=== PATIENT | female | born 1960 | race Caucasian/White ===

== ENCOUNTER → 2018-05-26 | Outpatient (CLI) | payer BC ==
[2018-05-30 12:08] LABS: HPV 16 Negative (Negative); HPV 18 Negative (Negative); HPV OTHER HR TYPES Negative (Negative)
== END | disposition home or self-care (01) ==
LOC: LAB SHORT 16:03 → LAB 16:03
PROVIDERS: Obstetrics & Gynecology
DX: R87.610 Atypical squamous cells of undetermined significance on cytologic smear of cervix (ASC-US) (principal); R87.810 Cervical high risk human papillomavirus (HPV) DNA test positive
CPT/HCPCS: 87624; 88142

== ENCOUNTER 2019-04-27 07:39 | Day surgery (SDC) | payer BC ==
[~2019-04-27] VITALS: Ht 177.8 cm; Wt 93.4 kg
[~2019-04-27 07:39] MED LIST: ALBU90OI INH
== END 2019-04-27 10:07 | disposition home or self-care (01) ==
LOC: ORSCSDS 07:39
PROVIDERS: Internal Medicine Gastroenterology
PROC: 0DBL8ZX Excision of Transverse Colon, Via Natural or Artificial Opening Endoscopic, Diagnostic (ICD-10-PCS; principal; 2019-04-27 09:00)
PROC: 0DBN8ZX Excision of Sigmoid Colon, Via Natural or Artificial Opening Endoscopic, Diagnostic (ICD-10-PCS; principal; 2019-04-27 09:00)
DX: Z12.11 Encounter for screening for malignant neoplasm of colon (principal); Z86.010 Personal history of colon polyps; K63.5 Polyp of colon; K64.8 Other hemorrhoids; E78.5 Hyperlipidemia, unspecified; Z79.899 Other long term (current) drug therapy
CPT/HCPCS: 88305; J2405; J2704; J7120

== ENCOUNTER → 2019-05-11 | Outpatient (CLI) | payer BC ==
[~2019-05-11] MED LIST changes: +HYDR1TAB94 PO; +IBUP400 PO; +Percocet 5-3251 EACH PO
== END | disposition home or self-care (01) ==
LOC: LAB SHORT 12:25 → PLD 12:25
DX: R93.89 Abnormal findings on diagnostic imaging of other specified body structures (principal)
CPT/HCPCS: 88305

== ENCOUNTER 2019-06-15 05:53 | Day surgery (SDC) | payer BC ==
[~2019-06-15] VITALS: Ht 177.8 cm; Wt 92.9 kg
[~2019-06-15 05:53] MED LIST changes: -HYDR1TAB94 PO; -IBUP400 PO; -Percocet 5-3251 EACH PO
--- NOTE | 2019-06-15 06:47 | NUR ---
Ambulatory in Day Surgery History, Chart, Medications and Allergies reviewed before start of procedure. Lungs clear T/O to Auscultation. Patient confirms NPO status and agrees with scheduled surgery. Pre-Op teaching done. Pt verbalizes understanding.
[2019-06-15 14:12] LABS: BASOPHILS ABSOLUTE AUTO 0.02 K/mm3 (0.00-0.23); BASOPHILS PERCENT AUTO 0 % (0-2); EOSINOPHILS ABSOLUTE AUTO 0.02 K/mm3 (0.00-0.68); EOSINOPHILS PERCENT AUTO 0 % (0-6); Hematocrit 37.4 % (33.0-51.0); Hemoglobin 12.2 g/dL (11.5-16.0); IMMATURE GRAN ABSOLUTE AUTO 0.06 K/mm3 (0.00-0.10); IMMATURE GRAN PERCENT AUTO 0 % (0-1); LYMPHOCYTES ABSOLUTE AUTO 1.17 K/mm3 (0.84-5.20); LYMPHOCYTES PERCENT AUTO 8 % (21-46); MONOCYTES ABSOLUTE AUTO 0.88 K/mm3 (0.16-1.47); MONOCYTES PERCENT AUTO 6 % (4-13); Mean Corpuscular HGB 27.8 pg (26.0-34.0); Mean Corpuscular HGB Conc 32.6 g/dL (31.5-36.5); Mean Corpuscular Volume 85 fL (80-100); Mean Platelet Volume 8.6 fL (9.1-12.4); NEUTROPHILS PERCENT AUTO 85 % (41-73); Platelet Count 224 K/mm3 (150-400); RDW Coefficient Variation 13.2 % (11.7-14.2); RDW Standard Deviation 41.7 fL (35.1-46.3); Red Blood Cell Count 4.39 M/mm3 (3.80-5.20); White Blood Cell Count 14.45 K/mm3 (4.00-11.30)
--- NOTE | 2019-06-15 17:44 | NUR ---
SUMMARY: PT IS POD0 LAVH. VSS, A/O. PT DOING WELL FOLLOWING SURGERY. SURGICAL SITES WNL, NO BLEED REPORTED VAGINALLY. PT HAS BEEN UP IN ROOM INDEPENDENTLY, MENDOZA REMOVED AND IS VOIDING. HAS DENIED NAUSEA AND HAS HAD MINIMAL PAIN. TOLERATING CLEAR LIQUIDS AND ADVANCING. WILL CTM AND REPORT TO VERONICA JHA.
[2019-06-15] MEDS ORDERED: Percocet 5-3251 EACH PO (18:34)
[2019-06-15] MEDS ORDERED: HYDR1TAB94 PO (18:36)
[2019-06-15] MEDS ORDERED: IBUP400 PO (18:37)
--- NOTE | 2019-06-15 18:47 | NUR ---
DISCHARGE: DR. REILLY IN TO SEE PT AT ABOUT 1820. VAGINAL PACKING REMOVED BY DR. REILLY AND NEW ORDERS FOR DISCHARGE. DC PACKET PRINTED AND PT EDUCATED. SCRIPT FOR VICODIN AND MOTRIN GIVEN TO PT, COPY PLACED IN CHART. PT VERBIZED UNDERSTANDING AND LEFT UNIT ON FOOT AT ABOUT 1845.
--- NOTE | 2019-06-20 12:05 | NUR ---
06/20/19 1205 Papst,Osorio D CHARTED VAGINAL PACKING AFTER CONFIRMING WITH OPERATIVE REPORT
== END 2019-06-15 17:44 | disposition home or self-care (01) ==
LOC: ORSCMMR 05:53 → PRE IP 05:53 → SURS 05:53 → ORSCMMR 05:54 → PRE IP 07:30 → EDSTATUS 07:30 → SURS 10:44 → ORSCMMR 17:44 → SURS 18:44 → ORSCMMR 06-20 22:47
PROVIDERS: Obstetrics & Gynecology
PROC: 0UT9FZZ Resection of Uterus, Via Natural or Artificial Opening With Percutaneous Endoscopic Assistance (ICD-10-PCS; principal; 2019-06-15 07:30)
PROC: 0UT2FZZ Resection of Bilateral Ovaries, Via Natural or Artificial Opening With Percutaneous Endoscopic Assistance (ICD-10-PCS; principal; 2019-06-15 07:30)
PROC: 0UT7FZZ Resection of Bilateral Fallopian Tubes, Via Natural or Artificial Opening With Percutaneous Endoscopic Assistance (ICD-10-PCS; principal; 2019-06-15 07:30)
PROC: 0JQC0ZZ Repair Pelvic Region Subcutaneous Tissue and Fascia, Open Approach (ICD-10-PCS; principal; 2019-06-15 07:30)
DX: N81.2 Incomplete uterovaginal prolapse (principal); N84.0 Polyp of corpus uteri; D25.2 Subserosal leiomyoma of uterus; N81.10 Cystocele, unspecified; J45.909 Unspecified asthma, uncomplicated; Z87.891 Personal history of nicotine dependence; Z79.899 Other long term (current) drug therapy
CPT/HCPCS: 36415; 85025; 88307; A9270; J0171; J0330; J0690; J1885; J2405; J2704; J3010; J7120

== ENCOUNTER → 2021-10-30 | Outpatient (CLI) | payer OTHER ==
[~2021-10-30] MED LIST changes: +HYDR1TAB94 PO; +IBUP400 PO; +Percocet 5-3251 EACH PO
== END ==
LOC: LAB SHORT 11:55
DX: D48.5 Neoplasm of uncertain behavior of skin (principal); D22.62 Melanocytic nevi of left upper limb, including shoulder
CPT/HCPCS: 88305